=== PATIENT | female | born 1985 | race Caucasian/White ===

== ENCOUNTER 2021-10-09 06:23 | Inpatient (IN) ==
[2021-10-09] MEDS ORDERED: OXYTOCIN 30 UNITS/500 ML BAG IV PRN ×3 (07:18→16:47)
--- NOTE | 2021-10-09 07:27 | History & Physical Report ---
Date of Service October 09, 2021 Assessment & Plan (1) SROM (spontaneous rupture of membranes): Plan: 36 y/o at 38 3/7 wga presents w/ SROM VSS Fetus cat 1 Labor - will manage expectantly, see if ctx bead picker. Aware if sve unchanged in few hours, may need pit GBS neg Epidural PRN History of Present Illness Chief Complaint: LOF Primary Care Provider: NO PCP 36 y/o at 38 3/7 wga presents w/ c/o LOF since 5AM. noted gush that soaked her clothes and ran down her leg, continued to leak since. +FM and starting to have occ ctx, denies VB. PNI: AMA Desires tubal Past [employer] Hx: G1 2012 at 40wks G2 2014 at 38 wks G3 current q28-30d cycles 09/2020 ascus/hpv- denies hx STIs Allergies Allergy/AdvReac Type Severity Reaction Status Date / Time No Known Allergies Allergy Verified 10/09/21 06:59 Home Medications Medication Instructions Recorded Confirmed Type prenat.vits,bernadette,zfs-iuii-nfzog 1 tab PO DAILY 03/09/21 10/09/21 History Patient History Medical History (Updated 10/09/21 @ 08:12 by Idania Limon MD) Cervical strain, acute History of chicken pox Normal labor and delivery Prolonged , antepartum condition or complication Surgical History History of cryosurgery Cervical cryosurgery. As an 18 yr old. No significant past surgical history No significant past surgical history Family History Father Heart disease arrythmia Mother Breast cancer Denies family history of Ovarian cancer Prostate cancer Colorectal cancer Social History Smoking Status: Current every day smoker Tobacco Type: Cigarettes Cigarettes Per Day: 10; Second Hand Exposure: No; Do You Dip or Chew Tobacco: No; Tobacco Cessation Education Requested by Patient: No Hx Alcohol Use: No Hx Substance Use: No Preferred Language: Indonesian Communication Ability: Effective Visual Impairment: No Limitations Hearing Ability: Normal Matrix Bath Attendant Required: No Beliefs That Will Affect Care: None marital status: marital status details: Dilan Jovel (32) [phone] Current Living Situation: Spouse Current Living Situation Comment: Lives with family. 1 dog and 2 cats. Family changes litter current occupational status: employed current occupation: Janitorial Other Information That Helps Us Care for You: No Feels Safe at Home: Yes Safety Concerns: Feels Safe At This Time Assistive Devices: None Physical Exam Constitutional: WD/WN, vitals as above Respiratory: normal respiratory effort; no respiratory distress and no labored breathing Genitourinary: OB Exam Abdomen: + vertex (confirmed by BSUS) and + estimated weight (8) Manual OB Exam: + cervical dilation 2 cm, + cervical effacement 50%, + station -2 and + amniotic fluid (SSE +nitrazine, pooling, ferning) OB Exam Monitor Tracing: + external FHT monitor used, + external uterine monitor used (irreg) and + category I (120/mod/+accel/-decel) Results & Data ([facility]) Vital Signs (Past 12 Hours) Vital Signs Temp Pulse Resp BP 10/09/21 06:48 98.6 F 90 18 108/59 L Laboratory Results OB Labs: Blood Type O Positive 03/19/21 Antibody Screen NEGATIVE 03/19/21 Hemoglobin 10.9 g/dL (12.0-16.0) L 08/03/21 Hematocrit 33.2 % (37-47) L 08/03/21 Mean Corpuscular Volume 92.1 fL (80-100) 03/19/21 Platelet Count 249 K/uL (130-400) 03/19/21 Rubella IgG Antibody Immune (Immune) 03/19/21 Rapid Plasma Reagin Nonreactive (Nonreactive) 03/19/21 Hepatitis B Surface Antigen Neg (Neg) 03/19/21 HIV (1&2) Ab and P24 Ag, 4th Gener Neg (Neg) 03/19/21 Glucose 1 Hour 50 gm Load 134 mg/dl (70-130) H 08/03/21 OB Optional Labs: Chlamydia trachomatis RNA NOT DETECTED (NOT DETECTED) 03/19/21 Neisseria gonorrhoeae RNA NOT DETECTED (NOT DETECTED) 03/19/21 Labs Reviewed: cf/sma neg--[facility] low risk panorama--akh declined afp--[facility] GBS neg Coding Level of Care Code None Diagnoses SROM (spontaneous rupture of membranes)
[2021-10-09 07:43] LABS: Hematocrit (blood only) 33.6 % (37-47); Hemoglobin 11.4 g/dL (12.0-16.0); Mean Corpuscular Hemoglobin 31.8 pg (25-34); Mean Corpuscular Hgb Conc 33.9 g/dL (32-36); Mean Corpuscular Volume 93.9 fL (80-100); Mean Platelet Volume 10.3 fL (7.4-10.4); Platelet Count 207 K/uL (130-400); RDW Standard Deviation 47.5 fL (36.4-46.3); Red Blood Count 3.58 M/uL (4.2-5.4); White Blood Count 10.46 K/uL (4.8-10.8)
[2021-10-09] MEDS: LACTATED RINGER'S 1,000 ML IV PRN ×2 (09:41→11:39)
[2021-10-09] MEDS ORDERED: BUPIVACAINE 0.25% 30 ML VIAL ONE ×2 (10:39→12:25)
[2021-10-09] MEDS ORDERED: ePHEDrine sulfate 50 MG/ML AMP ONE (10:39)
[2021-10-09] MEDS ORDERED: SODIUM CHLORIDE 0.9% INJ 10 ML VIAL ONE (10:39)
[2021-10-09] MEDS ORDERED: fentaNYL citrate 100 MCG/2 ML VIAL ONE ×2 (10:39→12:24)
[2021-10-09] MEDS ORDERED: fentaNYL 2MCG/ML ROPIVACAINE 1.25MG/ML 100 ML BAG EPI ONE (10:40)
[2021-10-09] MEDS ORDERED: NALBUPHINE HCL INJ 10 MG/ML AMP IV PRN (10:59)
[2021-10-09] MEDS ORDERED: NALOXONE HCL 0.4 MG/1 ML VIAL/CARP IV PRN (10:59)
[2021-10-09] MEDS ORDERED: ePHEDrine sulfate 50 MG/ML AMP IV PRN (10:59)
[2021-10-09] MEDS ORDERED: diphenhydrAMINE 50 MG/ML VIAL IV PRN (10:59)
[2021-10-09] MEDS ORDERED: ONDANSETRON INJ 2 MG/ML 2 ML VIAL IV PRN (10:59)
[2021-10-09] MEDS ORDERED: NALOXONE HCL 1 MG in SODIUM CHLORIDE 0.9% 1000ML 1,000 ML IV PRN (10:59)
[2021-10-09] MEDS ORDERED: fentaNYL 2MCG/ML ROPIVACAINE 1.25MG/ML 100 ML BAG EPI PRN (10:59)
--- NOTE | 2021-10-09 11:04 | Anesthesiology Consultation ---
Date of Service October 09, 2021 Assessment & Plan (1) Encounter for pre-operative examination: Chart Review Chart Review: Acceptable Risk for Labor Epidural Consults Requested none ASA ASA2 Proposed Anesthesia Anesthesia Type: Labor Epidural Risk / Benefits Reviewed With: PT / POA / Parent / Guardian, Accepts Plan and Informed Consent Obtained History Height/Weight Height: 5 ft 7 in Weight: 98.883 kg Allergies Allergy/AdvReac Type Severity Reaction Status Date / Time No Known Allergies Allergy Verified 10/09/21 06:59 Medications Home Medications Medication Instructions Recorded Confirmed Last Taken prenat.vits,bernadette,nez-bwtd-kvrep 1 tab PO DAILY 03/09/21 10/09/21 10/08/21 17:00 Active Medications Generic Name Dose Route Start Last Admin Trade Name Freq PRN Reason Stop Dose Admin Lactated Ringer's 1,000 mls @ 125 mls/hr 10/09/21 07:18 10/09/21 10:35 Lr IV 10/11/21 07:17 999 mls/hr .Q8H PRN Infusion L&D Protocol Protocol Oxytocin 30 units in 500 mls @ 3 mls/hr 10/09/21 08:52 10/09/21 10:15 Pitocin IV 10/11/21 08:51 0.18 units/hr .Q24H PRN 3 mls/hr Labor Induction/Augmentation Titration Protocol 0.18 UNITS/HR Past Medical History Medical History Cervical strain, acute History of chicken pox Normal labor and delivery Prolonged , antepartum condition or complication Exercise / Class Metabolic Activity II 4-5 Yardwork/Stairs/Walk up hill Past Family History Family History Father Heart disease arrythmia Mother Breast cancer Denies family history of Ovarian cancer Prostate cancer Colorectal cancer Past Surgical History Surgical History History of cryosurgery Cervical cryosurgery. As an 18 yr old. No significant past surgical history No significant past surgical history Past Anesthesia History No Hx of Anesthesia Complications and No Family Hx of Anesthesia Complications History of PONV No Hx of PONV and No Hx of Motion Sickness Social History Smoking Status: Current every day smoker tobacco type: cigarettes Smoking cigarettes per day: 10 Do You Dip or Chew Tobacco: No Hx Alcohol Use: No Hx Substance Use: No Physical Exam Vital Signs Last Vital Signs Temp 98.1 F 10/09/21 09:43 Pulse 75 10/09/21 10:34 Resp 20 10/09/21 09:43 BP 112/61 10/09/21 10:34 ENMT Mouth: no dentition abnormality Thyromental Distance: > or= 3.5 Finger Breadths Mallampati Class: II Neck normal visual inspection Respiratory normal respiratory effort Auscultation: lungs clear to auscultation bilaterally Cardiovascular Rate/Rhythm: regular rate and regular rhythm Testing Laboratory Results 10/09/21 07:32
--- NOTE | 2021-10-09 11:07 | Labor Progress Brief Note ---
Date of Service October 09, 2021 Subjective Late entry Pt states ctx stronger but not more frequent. willing to start pit Assessment & Plan (1) PROM (premature rupture of membranes): (2) Encounter for induction of labor: (3) SROM (spontaneous rupture of membranes): Plan: will now begin pitocin for induction with no evid of active labor now >4hr from prom. pt and partner agreeable. fhts categ 1. aware that I am taking over care. deny ?s or concerns. Admission and Anticipated Discharge Date Admission Date: October 09, 2021 Physical Exam Constitutional: WD/WN, vitals as above Genitourinary: Manual OB Exam: + cervical dilation (2-3cm), + cervical effacement 50% and + station -2 OB Exam Monitor Tracing: + external FHT monitor used, + external uterine monitor used, + category I and + normal FHT variability Results & Data ([facility]) Vital Signs (Past 12 Hours) Vital Signs Temp Pulse Resp BP Pulse Ox 10/09/21 11:03 80 93 10/09/21 10:34 75 112/61 10/09/21 09:43 98.1 F 81 20 99/56 L 10/09/21 08:10 98.1 F 82 20 104/55 L 10/09/21 06:48 98.6 F 90 18 108/59 L Coding Level of Care Code None Diagnoses PROM (premature rupture of membranes) O42.90 Encounter for induction of labor Z34.90 SROM (spontaneous rupture of membranes)
[2021-10-09] MEDS ORDERED: Nursing to Pharmacy Communication SCH (12:00)
--- NOTE | 2021-10-09 13:52 | Delivery Summary ---
Vaginal Delivery Summary Date of Service October 09, 2021 Vaginal Delivery Summary The patient dilated to complete and pushed to deliver a viable male Apgars 8 and 9 via over intact perineum. Mouth and nose bulb suctioned at perineum. Loose nuchal reduced. Mild shoulder dystocia encountered relieved by Chay maneuvers and continued maternal expulsive efforts. Body delivered with ease. was vigorous and crying at . Cord clamped at 30 seconds of life and infant to maternal abdomen where the cord was then doubly clamped and cut. Placenta delivered spontaneously and intact, three-vessel cord. Hemostasis achieved with dilute pitocin and uterine massage and drainage of the bladder for approximately 200 cc under sterile conditions. Cervix and sulci intact. EBL 300 cc. Mother and baby stable in recovery. [facility] Vaginal Delivery Charge Delivery Type Details:
[2021-10-09] MEDS ORDERED: OXYTOCIN 20 UNITS in LACTATED RINGER'S 1,000 ML IV SCH (14:15)
--- NOTE | 2021-10-09 14:46 | Communication Note ---
Date of Service: October 09, 2021 The patient stated having increasing R sided labor pain. The epidural was bolused with fentanyl 50mcg and 0.25% bupivacaine 3 mL. The patient stated that her labor pains improved. VSS throughout.
--- NOTE | 2021-10-09 14:47 | Anesthesia Procedure Note ---
Date of Service October 09, 2021 Anesthesia Post Epidural Note Vital Signs Vital Signs: Temp Pulse Resp BP Pulse Ox 98.1 F 68 20 112/56 L 98 10/09/21 13:25 10/09/21 14:40 10/09/21 13:55 10/09/21 14:40 10/09/21 13:14 Pain Intensity Abdomen: Pain Intensity: 0 Notes Mental Status: alert / awake / arousable and participated in evaluation Nausea / Vomiting: adequately controlled Pain: adequately controlled Airway Patency, RR, SpO2: stable & adequate BP & HR: stable & adequate Hydration State: stable & adequate Neuraxial Anesthesia: was administered and sensory block is resolving Anesthetic Complications: no major complications apparent and Pt Satisfied with anesthetic care Epidural: Removed without complications and With tip intact
[2021-10-09] MEDS ORDERED: ACETAMINOPHEN 325 MG TAB PO PRN (16:47)
[2021-10-09] MEDS ORDERED: oxyCODONE/ACETAMINOPHEN 5mg/325mg TAB PO PRN (16:47)
[2021-10-09] MEDS ORDERED: HYDROCORTISONE ACETATE 25 MG SUPP PR PRN (16:47)
[2021-10-09] MEDS ORDERED: DIPHTHERIA/TETANUS/PERTUSSIS 0.5 ML SYR/VIAL IM ONE (16:47)
[2021-10-09] MEDS ORDERED: BENZOCAINE 20% AER SPR 82.5 GM CAN EXT PRN (16:47)
--- NOTE | 2021-10-09 17:00 | Communication Note ---
Date of Service: October 09, 2021 Patient listed in her record desire for tubal ligation for sterilization. After delivery discussed option for pptl vs. interval tubal. She desires attempt at pptl but aware of limitations in knowing timing of procedure. She would like to be put on schedule and then go from there. Consent reviewed and signed. Risks, alternatives and complications of procedure reviewed with patient and include but are not limited to bleeding, infection, anesthesia, injury to bowel, bladder, vessels, nerves, deep venous thrombosis, delayed complication, failure of procedure with resultant , ectopic which can be medical emergency. Patient desires to proceed and consent signed. She is aware of preop and postop instructions and course. Will keep NPO after midnight. MD conservation planner tomorrow aware of pt desires and agrees to proceed. OR notified of this "add-on" procedure.
[2021-10-09] MEDS: IBUPROFEN 600 MG TAB PO PRN (18:51)
[2021-10-09] MEDS ORDERED: DOCUSATE SODIUM 100 MG CAP PO SCH (21:00)
[2021-10-10] MEDS: IBUPROFEN 600 MG TAB PO PRN ×3 (00:04→14:37)
[2021-10-10 06:41] LABS: Hematocrit (blood only) 30.8 % (37-47); Hemoglobin 10.4 g/dL (12.0-16.0)
--- NOTE | 2021-10-10 07:15 | Obstetrical Progress Note ---
Date of Service <James Do MD - Last Filed: 10/10/21 07:15> October 10, 2021 Assessment & Plan <James oD MD - Last Filed: 10/10/21 07:15> (1) Encounter for care and examination after delivery: PPD 1: stable, routine management * patient voiding and ambulating without difficulty * pain well controlled on analgesia * tolerating regular dietn.p.o. since midnight * * Scheduled for tubal ligation, likely today. * Reassess d/c p.m. today, or tomorrow a.m. <Kate Winston MD, FACOG - Last Filed: 10/10/21 07:21> (1) Encounter for care and examination after delivery: Subjective <James Do MD - Last Filed: 10/10/21 07:15> Idania is a 36 y/o female who is now PPD #1 following spontaneous vaginal delivery at 38.3 weeks. Reports feeling well overall this morning. Abdominal cramping pain well managed on analgesics. Voiding well. Tolerating meals well and able to ambulate without assistance, or dizziness. Lochia is improved this morning. . Review of Systems Denies fever, chills, sweats Denies shortness of breath, difficulty breathing, chest pain, palpitations, chest pressure. Denies breast pain. Denies dysuria. Denies headache or changes in vision Physical Exam <James Do MD - Last Filed: 10/10/21 07:15> General: Alert, oriented. No acute distress. Cardiac: Regular rate and rhythm, no murmurs/rubs/gallops. Respiratory: Clear to auscultation bilaterally a/p, no wheezes/rales/rhonchi. No increased work of breathing. Symmetrical chest rise. No respiratory distress. Abdomen: Soft, nontender, nondistended. Bowel sounds present. Uterus: Uterine fundus firm, palpable 1 cm below umbilicus. Lower Extremities: No lower extremity edema or swelling. No deep calf pain. Arash's negative bilaterally.. Results & Data ([facility]) <James Do MD - Last Filed: 10/10/21 07:15> Vital Signs (Past 12 Hours) Vital Signs Temp Pulse Resp BP 03/16/22 03:50 36.8 C 76 18 91/56 L 10/10/21 00:15 36.6 C 67 18 104/67 <Kate Winston MD, FACOG - Last Filed: 10/10/21 07:21> Co-Signing Physician Notes Resident Physician Supervision Note: I was present with Dr. Do during the history and exam. I discussed the case with the resident and agree with the findings and plan as documented in the note. Any exceptions or clarifications are listed here: stable, hoping to proceed with PPTL today. consent signed. OR aware. No fluids right now hoping for early case, may need LR. NPO, took motrin with sip. breast feeding. rh pos. ri. routine pp care otherwise. Documented By: Kate Winston MD, FACOG Resident Activity Tracking <James Do MD - Last Filed: 10/10/21 07:15> Resident Involvement: Resident Care Provided Care Provided: Adult Hospital Medicine
[2021-10-10] MEDS ORDERED: PRENATAL VITAMIN 1 TAB PO SCH (08:00)
[2021-10-10] MEDS ORDERED: LACTATED RINGER'S 1,000 ML IV SCH (09:15)
--- NOTE | 2021-10-10 09:25 | Communication Note ---
Date of Service: October 10, 2021 Made patient aware of my current situation on labor and delivery. I will likely not be able to do her tubal until 12pm at the earliest and could be later d epending on what comes onto the unit. Offered to do it at any time today, but that she may be npo until quite late in the day. After consideration, she has decided not to do her TL today. Will now plan d/c for later today. Can f/u with physician at her pp visit.
== END 2021-10-10 15:35 | disposition home or self-care (01) | DRG 807 ==
LOC: OPB 06:23 → 4S1 06:29 → 4S2 16:45